=== PATIENT | female | born 2000 | race Caucasian/White ===

== ENCOUNTER 2024-11-29 08:15 | Outpatient (RCR) | payer BC, SELFPAY ==
[2024-11-20 12:58] VITALS: BMI 22.6
[2024-11-20 12:59] VITALS: BP 110/60; PULSE 80; TEMP 36.7
--- NOTE | 2024-11-20 13:59 | PC.ADMIT ---
Patient is a 23 year old single female who was referred to [facility] by her therapist d/t increased depression since her 22 year old cousin, whom she was close to, committed suicide Last April. Patient reports she has a history of depression however worsened since her cousins . Whitney continues to grieve his loss along with her family. Patient is currently taking a GIRISH from work. Regarding current job and living situation patient stated, Job situation and living situation I enjoy . Patient is a pre-schoolschool office assistant. She lives with a roommate and they have no reported issues. 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 Regarding goals of treatment patient stated, I need something to shock me out of this. I would like to get into more grief groups as well. Patient reports her aunt is supportive who lives close by who told Whitney that she can come to her home any time no questions asked if she needed support. Patient also stated her mother is supportive however it is complicated as she stated her father has issues with alcohol and is emotionally unpredictable. Patient reports he is intoxicated daily and she believes that her mother enables her father. Patient is alert and oriented x4. She is calm and cooperative. She presented with depressed mood and anxious affect. She denied SI, no HI. She was given a copy of her safety plan if needed. Patient reports using marijuana daily and has cut down her use in anticipation of attending PHP in addition to her goal of cutting down her use. She was given written and verbal education about potential effects of long and short term use. Medications updated with patient and patient's pharmacy. Patient reports she is taking medications daily as prescribed.
--- NOTE | 2024-11-21 14:31 | HO.PHP ---
Clients case was opened and reviewed in teams today.
--- NOTE | 2024-11-25 13:07 | HO.PHP ---
PHP staff member faxed over a referral for med management for Whitney through [facility]. PHP staff member is awaiting a response from [facility] with the dates and times of the appointments.
--- NOTE | 2024-11-25 22:38 | HO.PS.ADMBH ---
HPI Date of Service: 11/25/24 Chief Complaint: depression Sources of Information: patient interviewed, chart reviewed and crisis/core team assessment reviewed HPI Narrative: Patient is a 24 year old female with history of chronic depression, anxiety, ED, orexia, who was referred to [facility] by her outpatient therapist. She has been struggling with her mental health and functioning over the past 6+months since the unexpected loss of her cousin to suicide in April. My cousin took his life, we were very close . She says prior to this she had chronic depression and anxiety, but felt she had been managing pretty well . She reports a history of SI, but denies any current suicidal thoughts and says after experiencing such a profound loss she would never want to leave anyone to go through this . Past Psychiatric History: No prior IPLOC, PHP, respite, detox/rehab admissions ED treatment x1: ([facility]) SA: denies, but endorses a long history of chronic SI without i/u/p in the past SIB: once casually tried to harm self by burning earlier in the year EDB: h/o binge-eating, restrictive behaviors, in remission since Aggression: denies Denies legal history or antisocial behaviors Previous diagnoses: ED Psychiatrist: none Therapist: Kimberley Harman PCP: Previous trials: none CURRENT MEDICATIONS: fluoxetine 50 mg QAM (since 09/2022) buspirone 7.5 mg BID (since 01/2024 as augmentation strategy) melatonin 10 mg qhs prn sleep [facility] History (Updated 12/19/24 @ 01:19 by Dorita Coats MD) 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[place]-Schlatter's disease Narrative: Overall healthy No chronic health conditions No h/o medical hospitalization for illness or injury Surgeries: denies Seizures: denies Concussions/TBI: denies Nulligravid G0 LMP: 2 weeks ago Ht: 5'7 Wt: 150 lbs ALL: NKDA Social History: Lives in [place] with roommate family in [place], mother, father and younger brother -2yrs Substance History: Alcohol use occasional Daily cannabis use, 1/2 bowl a day, varies No nicotine or other drug use hx Trauma History: traumatic loss of cousin to suicide in 04/2024 Diagnostics Vital Signs (24Hr): BMI result Body Mass Index 22.6 Meds/Allergies Meds Home Medications ?Medication ?Instructions ?Recorded ?Confirmed ?Type buspirone 7.5 mg tablet 7.5 mg PO BID 11/20/24 11/20/24 History fluoxetine 10 mg capsule 50 mg PO DAILY 11/20/24 11/20/24 History melatonin 10 mg tablet 10 mg PO BEDTIME PRN Insomnia 11/20/24 11/20/24 History Allergies Allergies Allergy/AdvReac Type Severity Reaction Status Date / Time No Known Allergies Allergy Verified 11/20/24 12:58 Mental Status Exam Mental Status Exam Narrative: Alert, oriented, in no acute distress. Calm, cooperative. Mood stable, affect appropriate. Speech normal. Thought process linear, coherent, more goal-directed. Thought content related to stressors, future-oriented, denies any helplessness, hopelessness or SI.? No aggressive ideation or HI. No paranoia or delusional content elicited. No evidence of psychosis. Insight and judgment fair-good. Assessment & Plan Assessment & Plan (1) MDD (major depressive disorder), recurrent episode: Status: Acute Code(s): F33.9 - Major depressive disorder, recurrent, unspecified (2) JORGE (generalized anxiety disorder): Status: Acute Code(s): F41.1 - Generalized anxiety disorder (3) Eating disorder, unspecified: Status: Acute Code(s): F50.9 - Eating disorder, unspecified Plan Admit to [facility] VS reviewed: afebrile, BP 110/60; 80 bpm continue regular medications for now Routine lab work as indicated EKG, routine for baseline QTc for medication considerations as indicated UDS as indicated MassPat reviewed Continue to monitor as per protocol Patient educated on: diagnosis, medication risk/benefits and substance abuse Informed Consent: understands Reason for continued partial hosp. stay Substantial Risk for: inability to function and med/psych decompensation Certification I certify that partial hospital treatment is medically necessary due to the symptoms and problems resulting from the patient's mental illness and the failure to treat the patient at the partial hospital level of care would likely result in the patient requiring inpatient psychiatric care which could not be prevented at a less intensive level of care. Time Spent With Patient Time: Total time managing care of this patient today _60___ minutes.
--- NOTE | 2024-11-28 23:15 | HO.PHPPROGNO ---
Subjective Subjective Date of Service: 11/28/24 Reason For Visit: depression Diagnostics Vital Signs (24Hr): BMI result Body Mass Index 22.6 Assessment & Plan Certification I certify that partial hospital treatment is medically necessary due to the symptoms and problems resulting from the patient's mental illness and the failure to treat the patient at the partial hospital level of care would likely result in the patient requiring inpatient psychiatric care which could not be prevented at a less intensive level of care. Total time managing care of this patient today ____ minutes. Discharge Plan Discharge Attending provider: Dorita Coats Medications: No Action fluoxetine 10 mg capsule 50 mg PO DAILY Rx Instructions: TAKE 1 CAPSULE BY MOUTH WITH YOUR 40MG TAB FOR A TOTAL DAILY DOSE OF 50MG DAILY buspirone 7.5 mg tablet 7.5 mg PO BID melatonin 10 mg Tablet 10 mg PO BEDTIME PRN (Reason: Insomnia) Rx Instructions: Patient takes OTC. Stand Alone Forms: Patient Portal Discharge page Print Language: [place]orese
--- NOTE | 2024-11-28 23:22 | P.PNPSP_ITS ---
Subjective Subjective Date of Service: 11/28/24 Reason For Visit: depression Interim History: Patient seen for follow up. Requests to discharge from program at end of week, says she plans to return to work. [facility] paperwork was filled out and given to her this morning. Reports no acute issues or concerns. Medication compliant, medications well- tolerated. Denies any adverse effects.? Doing fine. I go back to work Monday. I feel ready... Not sure this program was for me. I'm looking forward to getting back to my outpatient therapist again. I see her next week . Denies SI, HI, AH, VH. Medication Compliance: Yes Side effects from medications: No Attending Groups: Yes Review of Systems Acute medical concerns: No Mental Status Exam Mental Status Exam Narrative: Alert, oriented, in no acute distress. Calm, cooperative. Mood less depressed, affect appropriate. Speech normal. Thought process linear, coherent, more goal- directed. Thought content related to stressors, future-oriented, denies any helplessness, hopelessness or SI.? No aggressive ideation or HI. No paranoia or delusional content elicited. No evidence of psychosis. Insight and judgment fair-good. Diagnostics Vital Signs (24Hr): BMI result Body Mass Index 22.6 Assessment & Plan Assessment & Plan (1) MDD (major depressive disorder), recurrent episode: Status: Acute Code(s): F33.9 - Major depressive disorder, recurrent, unspecified (2) JORGE (generalized anxiety disorder): Status: Acute Code(s): F41.1 - Generalized anxiety disorder (3) Eating disorder, unspecified: Status: Acute Code(s): F50.9 - Eating disorder, unspecified Plan Continue PHP continue regular medications Routine lab work as indicated EKG, routine for baseline QTc for medication considerations as indicated UDS as indicated MassPat reviewed Continue to monitor Patient educated on: diagnosis and medication risk/benefits Informed Consent: understands Reason for contiued partial hosp. stay Substantial Risk for: med/psych decompensation Certification I certify that partial hospital treatment is medically necessary due to the symptoms and problems resulting from the patient's mental illness and the failure to treat the patient at the partial hospital level of care would likely result in the patient requiring inpatient psychiatric care which could not be prevented at a less intensive level of care. Total time managing care of this patient today __30__ minutes. Discharge Plan Discharge Attending provider: Dorita Coats Medications: Continued fluoxetine 10 mg capsule 50 mg PO DAILY Rx Instructions: TAKE 1 CAPSULE BY MOUTH WITH YOUR 40MG TAB FOR A TOTAL DAILY DOSE OF 50MG DAILY buspirone 7.5 mg tablet 7.5 mg PO BID melatonin 10 mg Tablet 10 mg PO BEDTIME PRN (Reason: Insomnia) Rx Instructions: Patient takes OTC. Stand Alone Forms: Patient Portal Discharge page Patient Education: Depression (DC), Generalized Anxiety Disorder (GEN) Print Language: Chinese
--- NOTE | 2024-11-29 13:10 | P.PNPSP_ITS ---
Subjective Subjective Date of Service: 11/29/24 Reason For Visit: depression Interim History: Patient seen for follow-up, anticipating discharge at the end of program today.? Reports no acute issues or concerns. Medication compliant, medications well- tolerated. Denies any adverse effects.? Mood is stable.? Denies any hopelessness or SI. Denies thoughts of harming self or others at this time. Denies any aggressive ideation or HI. Denies any paranoia or AH or VH. Sleep, appetite, energy stable. Medication Compliance: Yes Side effects from medications: No Attending Groups: Yes Review of Systems Acute medical concerns: No Mental Status Exam Mental Status Exam Narrative: Alert, oriented, in no acute distress. Calm, cooperative. Mood stable, affect appropriate. Speech normal. Thought process linear, coherent, more goal- directed. Thought content related to stressors, future-oriented, denies any helplessness, hopelessness or SI.? No aggressive ideation or HI. No paranoia or delusional content elicited. No evidence of psychosis. Insight and judgment fair-good. Diagnostics Vital Signs (24Hr): BMI result Body Mass Index 22.6 Assessment & Plan Assessment & Plan (1) MDD (major depressive disorder), recurrent episode: Status: Acute Code(s): F33.9 - Major depressive disorder, recurrent, unspecified (2) JORGE (generalized anxiety disorder): Status: Acute Code(s): F41.1 - Generalized anxiety disorder (3) Eating disorder, unspecified: Status: Acute Code(s): F50.9 - Eating disorder, unspecified Plan [facility]charge from [facility] Continue regular medications Refills sent to pharmacy Will defer further medication management to outpatient provider *Safety plan reviewed *Discharge diagnoses, treatment course, discharge plan have been reviewed with patient (including medication regime, medication management, potential side effects) as well as treatment rationale were also revisited *Discharge paperwork signed and given to patient, copy sent for scanning to chart Patient educated on: diagnosis and medication risk/benefits Informed Consent: understands Reason for contiued partial hosp. stay Substantial Risk for: stable for discharge Certification I certify that partial hospital treatment is medically necessary due to the symptoms and problems resulting from the patient's mental illness and the failure to treat the patient at the partial hospital level of care would likely result in the patient requiring inpatient psychiatric care which could not be prevented at a less intensive level of care. Total time managing care of this patient today __60__ minutes. Discharge Plan Discharge Attending provider: Dorita Coats Medications: Continued fluoxetine 10 mg capsule 50 mg PO DAILY Rx Instructions: TAKE 1 CAPSULE BY MOUTH WITH YOUR 40MG TAB FOR A TOTAL DAILY DOSE OF 50MG DAILY buspirone 7.5 mg tablet 7.5 mg PO BID melatonin 10 mg Tablet 10 mg PO BEDTIME PRN (Reason: Insomnia) Rx Instructions: Patient takes OTC. Stand Alone Forms: Patient Portal Discharge page Patient Education: Depression (DC), Generalized Anxiety Disorder (GEN) Print Language: Urdu
--- NOTE | 2024-12-02 15:00 | HO.PHP ---
12/14/2024 - 12:00 PM - 01:00 PM Urgent Care Comprehensive Assessment Adult Prog: [facility] Clinic Site: [address] [place] [address] GOGO Espinoza Staff: Modesta Faye 01/06/2025 - 10:30 AM - 11:30 AM Psychiatric E/M New - Face to Face v2 Prog: [facility] Site: [address] [place] [address] Staff: SANDOVAL ALMANZAR
== END 2024-11-29 23:59 | disposition home or self-care (01) ==
LOC: HO.PHPA 08:15
PROVIDERS: Visit Provider Psychiatry & Neurology Psychiatry
DX: F33.9 Major depressive disorder, recurrent, unspecified (principal); F41.1 Generalized anxiety disorder; F50.9 Eating disorder, unspecified; Z79.899 Other long term (current) drug therapy
CPT/HCPCS: 90791; 90853